=== PATIENT | female | born 1945 | race Hispanic/Latino ===

== ENCOUNTER 2016-08-08 10:37 | Outpatient (CLI) | payer OTHER ==
--- NOTE | 2016-08-08 11:49 | Mammography Report ---
Bilateral digital screening mammogram with CAD. Comparison is made to the previous study on November 06, 2013. There are scattered fibroglandular densities. In the upper outer quadrant, there is a circumscribed nodular asymmetry measuring 1.1 cm in maximum dimension. This has increased in size by 2 mm. The margins appear smooth. No suspicious calcifications are seen. Impression: Slight increase in the size of a right nodular asymmetry, upper-outer quadrant. BI-RADS code: 0. Recommendation: Targeted ultrasound.
== END 2016-08-08 10:38 | disposition home or self-care (01) ==
LOC: SPVWC 10:37
PROVIDERS: ATTEND Internal Medicine
DX: Z12.31 Encounter for screening mammogram for malignant neoplasm of breast (principal)
CPT/HCPCS: 77067; G0202

== ENCOUNTER 2016-09-28 10:50 | Outpatient (CLI) | payer OTHER ==
--- NOTE | 2016-09-28 11:55 | Ultrasound Report ---
RIGHT BREAST ULTRASOUND: 09/28/16 10:50:00 CLINICAL: Increased size of a nodular asymmetry in the outer right breast. COMPARISON: 08/08/16 mammogram. FINDINGS: Ultrasound of the outer right breast was performed and demonstrated a benign lymph node with central fat at 9 o'clock 5 cm from the nipple. It measures 1.0 x 0.6 x 1.1 cm and corresponds to the asymmetry on the mammogram. IMPRESSION: Benign intramammary lymph node at 9 o'clock right breast. BI-RADS 2 - - Benign RECOMMENDATION: Routine mammographic screening in one year.
== END 2016-09-28 10:51 | disposition home or self-care (01) ==
LOC: SPVWC 10:50
PROVIDERS: ATTEND Internal Medicine
DX: N64.89 Other specified disorders of breast (principal)